=== PATIENT | female | born 2000 | race African-American/Black ===

== ENCOUNTER 2022-06-22 11:48 | Emergency (ER) | payer OTHER, MEDICAID, SELFPAY ==
[2022-06-22 11:50] VITALS: BP 117/68; PULSE 88; RESP 15; TEMP 36.3; O2SAT 99; BMI 24.2
--- NOTE | 2022-06-22 12:05 | ED_ITS ---
HPI - Asthma <JEFFREY Gonzalez - Last Filed: 06/22/22 17:33> General Chief Complaint: Asthma Stated Complaint: Asthma issues Time Seen by Provider: 06/22/22 12:04 Source: patient Mode of arrival: Ambulatory History of Present Illness HPI Narrative: This is a 22-year-old female presents to the emergency department complaining about her allergy symptoms which have been worsening recently, states that she feels short of breath and has had some wheezing intermittently. States that she was given an inhaler 6 months ago and it has run out and she does not have 1 at this time. She endorses urinary frequency and cloudy urine with a mild odor and is concerned about a bladder infection. She denies any abnormal vaginal discharge, she denies any fevers, nausea vomiting. She states that she has had allergy symptoms recently and maybe a mild cold but denies any productive cough or other respiratory symptoms. Related Data Previous Rx's Medication Instructions Recorded albuterol sulfate 90 mcg/actuation 1 inh inhalation Q6H PRN shortness 06/22/22 aerosol inhaler of breath or wheezing #8.5 grams cephalexin 500 mg tablet 500 mg PO BID 5 days #10 tabs 06/22/22 cetirizine 10 mg tablet (Allergy 10 mg PO BEDTIME PRN congestion 06/22/22 Relief (cetirizine)) #30 tabs Allergies Allergy/AdvReac Type Severity Reaction Status Date / Time No Known Drug Allergies Allergy Verified 06/22/22 11:50 Review of Systems <JEFFREY Gonzalez - Last Filed: 06/22/22 17:33> Review of Systems Narrative: Review of systems is negative for acute abnormalities unless otherwise noted in HPI Patient History <JEFFREY Gonzalez - Last Filed: 06/22/22 17:33> Social History Smoking Status: Current every day smoker Smoking Status: Current every day smoker alcohol intake frequency: holidays/special occasions only Substance Use Type: does not use Exam <JEFFREY Gonzalez - Last Filed: 06/22/22 17:33> Narrative Exam Narrative: Reviewed vitals signs and nursing notes. General: cooperative, comfortable, in no acute distress, well groomed HEENT: symmetrical facial expressions, moist mucous membranes Cardiovascular: regular rate and rhythm, no peripheral edema, warm extremities Respiratory: normal effort, expiratory wheezes bilaterally, able to speak in complete sentences, without stridor, retractions or tachypnea. GI: abdomen soft, nontender to palpation, nondistended, without masses, rebound tenderness or exquisite tenderness with exam. MSK: moves all extremities, neurovascularly intact, no weakness, normal tone Skin: brisk capillary refill, without pallor or erythema Neuro: normal speech and cognition, A&O x3, ambulatory, clear speech Psych: mental status is grossly normal, congruent mood, normal affect, pleasant and cooperative Initial Vital Signs Initial Vital Signs: Vital Signs Temperature 97.3 F L 06/22/22 11:50 Pulse Rate 88 06/22/22 11:50 Respiratory Rate 15 06/22/22 11:50 Blood Pressure 117/68 06/22/22 11:50 Pulse Oximetry 99 06/22/22 11:50 Oxygen Delivery Method 06/22/22 11:50 <Jose Barksdale MD - Last Filed: 06/22/22 18:13> Initial Vital Signs Initial Vital Signs: Vital Signs Temperature 97.3 F L 06/22/22 11:50 Pulse Rate 88 06/22/22 11:50 Respiratory Rate 15 06/22/22 11:50 Blood Pressure 117/68 06/22/22 11:50 Pulse Oximetry 99 06/22/22 11:50 Oxygen Delivery Method 06/22/22 11:50 Course <JEFFREY Gonzalez - Last Filed: 06/22/22 17:33> Orders Ordered: ED Orders 06/22/22 11:55 COVID19 -Nasal RAPID/Pre-Proc Stat 06/22/22 12:00 Urine Culture Stat Urine Microscopic Stat 06/22/22 12:05 RT Consult Eval and Treat NOW Discontinued Medications Albuterol (Albuterol Hfa Prepack) 1 box MISC SEEINSTR ONE Stop: 06/22/22 15:38 Last Admin: 06/22/22 15:58 Dose: 1 box Documented By: JONEL Cephalexin HCl (Cephalexin 250 Mg Capsule) 500 mg PO NOW ONE Stop: 06/22/22 15:38 Last Admin: 06/22/22 15:57 Dose: 500 mg Documented By: JONEL Vital Signs Vital signs: Vital Signs - 8 hr 06/22/22 11:50 06/22/22 15:27 Temperature 97.3 F L Pulse Rate 88 71 Respiratory Rate 15 16 Blood Pressure 117/68 105/56 L Pulse Oximetry 99 99 Oxygen Delivery Method Room Air Room Air <Jose Barksdale MD - Last Filed: 06/22/22 18:13> Orders Ordered: ED Orders 06/22/22 11:55 COVID19 -Nasal RAPID/Pre-Proc Stat 06/22/22 12:00 Urine Culture Stat Urine Microscopic Stat 06/22/22 12:05 RT Consult Eval and Treat NOW Discontinued Medications Albuterol (Albuterol Hfa Prepack) 1 box MISC SEEINSTR ONE Stop: 06/22/22 15:38 Last Admin: 06/22/22 15:58 Dose: 1 box Documented By: JONEL Cephalexin HCl (Cephalexin 250 Mg Capsule) 500 mg PO NOW ONE Stop: 06/22/22 15:38 Last Admin: 06/22/22 15:57 Dose: 500 mg Documented By: JONEL Vital Signs Vital signs: Vital Signs - 8 hr 06/22/22 11:50 06/22/22 15:27 Temperature 97.3 F L Pulse Rate 88 71 Respiratory Rate 15 16 Blood Pressure 117/68 105/56 L Pulse Oximetry 99 99 Oxygen Delivery Method Room Air Room Air MDM - Asthma <JEFFREY Gonzalez - Last Filed: 06/22/22 17:33> Lab Data Labs: Lab Results 06/22/22 06/22/22 Range/Units 11:55 12:00 Urine RBC None seen (0-5/HPF) Urine WBC None seen (0-5/HPF) Ur Squamous Epith Cells 1-5 /hpf (0-5/HPF) Urine Bacteria Many (>30) H (None) Ur Culture Indicated? Culture not indicate SARS-CoV-2 (PCR) Negative (Negative) Point of Care Testing Test Results Negative Urine Dip Bedside Urine Glucose Negative Bedside Urine Bilirubin - Negative Bedside Urine Ketone - Negative Urine Specific [place] 1.015 Bedside Urine Occult Blood - Negative Bedside Urine pH 6.0 Bedside Urine Protein - Negative Bedside Urine Urobilinogen 0.2 Bedside Urine Nitrite + Positive Bedside Urine Leukocytes - Negative Esterase MDM Narrative Medical decision making narrative: This is a 22-year-old female presents to the emergency department complaining of allergic rhinitis symptoms recently with shortness of breath and wheezing that has gotten worse recently with history of asthma and does not have any albuterol at home. She states that her asthma is exertional intermittent and she had run out of her inhaler. Today she had expiratory wheezes on exam, mild tachypnea, she was given albuterol inhaler by respiratory therapy and taught how to use it, she was found to have many bacteria in her urine microscopy and complains of urinary odor and cloudy urine. She was treated with cephalexin b.i.d. for the next 5 days and given a prescription of albuterol, she states that she has had a lot of congestion which triggered her asthma, she was given cetirizine as needed for nasal congestion and allergic rhinitis. Patient understands to return to the emergency department for any worsening of her symptoms, her COVID PCR was negative today. Encouraged to stay hydrated, use Tylenol and ibuprofen as needed for pain. Patient is appropriate and amenable to discharge home. Vital signs are stable on repeat examination is unremarkable. Patient has been informed of results. Patient has been given strict return to ER precautions for any new or worsening symptoms. Patient understands to follow up closely with outpatient providers as instructed. Patient understands plan and agrees to discharge home. All questions and concerns answered at this time. <Jose Barksdale MD - Last Filed: 06/22/22 18:13> Lab Data Labs: Lab Results 06/22/22 06/22/22 Range/Units 11:55 12:00 Urine RBC None seen (0-5/HPF) Urine WBC None seen (0-5/HPF) Ur Squamous Epith Cells 1-5 /hpf (0-5/HPF) Urine Bacteria Many (>30) H (None) Ur Culture Indicated? Culture not indicate SARS-CoV-2 (PCR) Negative (Negative) Point of Care Testing Test Results Negative Urine Dip Bedside Urine Glucose Negative Bedside Urine Bilirubin - Negative Bedside Urine Ketone - Negative Urine Specific [place] 1.015 Bedside Urine Occult Blood - Negative Bedside Urine pH 6.0 Bedside Urine Protein - Negative Bedside Urine Urobilinogen 0.2 Bedside Urine Nitrite + Positive Bedside Urine Leukocytes - Negative Esterase Discharge Plan Departure Patient Disposition: Home Clinical Impression: Allergic rhinitis Qualifiers: Allergic rhinitis trigger: unspecified Allergic rhinitis seasonality: seasonal Qualified Code(s): J30.2 - Other seasonal allergic rhinitis Acute asthma exacerbation Qualifiers: Asthma severity: unspecified severity Asthma persistence: intermittent Qualified Code(s): J45.21 - Mild intermittent asthma with (acute) exacerbation Acute cystitis Qualifiers: Hematuria presence: without hematuria Qualified Code(s): N30.00 - Acute cystitis without hematuria Instructions: Acute Cystitis, DI for Asthma -- Adult, DI for Allergic Rhinitis Activity Restrictions/Additional Instructions: *You have been diagnosed with acute cystitis/a bladder infection, congestion related to allergic rhinitis which likely triggered her asthma. Please follow- up with your primary care provider about your asthma status, this is likely a flare of your symptoms from your cold/allergies. If you have ongoing urinary issues please follow-up with your primary care provider for a test of cure. I hope you feel better soon. *What to do: *Please continue to take your regular medications as directed. [x ] New medication prescriptions sent to your pharmacy: [ [facility]] [ ] New medication written as a paper prescription [ ] No new medications given *Please follow up with your primary care provider in 2-3 days, call for an appointment. Let them know you were seen in the Emergency Department and that we asked that you be seen for follow-up. We will electronically transmit a record of today's note if your PCP is in our system *If you do not have a primary care provider please contact [phone] to [facility] with one of the [facility] primary care providers. *Return to Emergency Department if you should have any new, worsening, or concerning symptoms, such as [fever greater than 101F, chills, worsening pain, persistent vomiting or other bothersome symptoms]. Prescriptions: New cephalexin 500 mg tablet 500 mg PO BID 5 Days Qty: 10 0RF cetirizine [Allergy Relief (cetirizine)] 10 mg tablet 10 mg PO BEDTIME PRN (Reason: congestion) Qty: 30 0RF albuterol sulfate 90 mcg/actuation HFA aerosol inhaler 1 inh inhalation Q6H PRN (Reason: shortness of breath or wheezing) Qty: 8.5 3RF Referrals: Camron Huizar MD [Physician] - Visit Report Forms: Patient Portal/API <Jose Barksdale MD - Last Filed: 06/22/22 18:13> [facility] [place] [facility] Attestation: I was immediately available in the department for consultation. ?This documentation has been reviewed and I agree with assessment and plan. Supervised by Jose Barksdale MD
[2022-06-22 12:29] LABS: Bacteria Urine Many (>30); RBC Urine None Seen (0-5/HPF); Squamous Epithelial Cell Urine 1-5 /HPF (0-5/HPF); WBC Urine None Seen (0-5/HPF)
[2022-06-22 12:29] LABS: COVID19 -Nasal RAPID Negative (Negative)
[2022-06-22 15:27] VITALS: BP 105/56; PULSE 71; RESP 16; O2SAT 99
[2022-06-22] MEDS: cephALEXin 250 MG CAPSULE 500 MG PO (15:57)
[2022-06-22] MEDS: ALBUTEROL HFA PREPACK 1 BOX MISC (15:58)
== END 2022-06-22 16:10 | disposition home or self-care (01) ==
PROVIDERS: Emergency Medicine; Emergency Provider Nurse Practitioner Critical Care Medicine
DX: J30.2 Other seasonal allergic rhinitis (principal); J45.21 Mild intermittent asthma with (acute) exacerbation; N30.00 Acute cystitis without hematuria; Z20.822 Contact with and (suspected) exposure to COVID-19
CPT/HCPCS: 81003; 81015; 81025; 87086; 87635; 94640; 99283; C9803